=== PATIENT | female | born 1965 | race Caucasian/White ===

== ENCOUNTER → 2016-12-23 | Outpatient (CLI) | payer BC ==
--- NOTE | 2016-12-26 10:22 | Diagnostic Imaging Report ---
Bilateral screening mammogram The current study was also evaluated with a Computer Aided Detection (CAD) system. Indication: Screening. No current complaints stated on the questionnaire. COMPARISON: 07/30/14. FINDINGS: The breasts are composed of a heterogeneously dense parenchyma which may decrease mammographic sensitivity. There are asymmetries seen in the outer aspect of the left breast with round and oval shapes measuring 7 and 14 mm in size. The left breast demonstrate a biopsy clip in the central position superiorly with no adverse development. IMPRESSION: Focal compression views and ultrasound evaluation for a lateral left breast asymmetry is recommended. BI-RADS 0. ACR BI-RADS Category 0: Incomplete. (Needs additional imaging evaluation). Result letter will be mailed to the patient. Note: At least 10% of breast cancer is not imaged by mammography. Dictated by: Dictated on workstation # [id number]
== END ==
LOC: RAD 10:31
PROVIDERS: ATTEND Obstetrics & Gynecology
DX: Z12.31 Encounter for screening mammogram for malignant neoplasm of breast (principal)
CPT/HCPCS: 77067

== ENCOUNTER → 2017-01-06 | Outpatient (CLI) | payer BC ==
--- NOTE | 2017-01-06 19:43 | Diagnostic Imaging Report ---
EXAMINATION: Left breast ultrasound. INDICATION: Lobulated asymmetries in the left breast seen on mammography. FINDINGS: There are multiple cysts seen with simple appearance ranging from 11 o'clock to 2 o'clock radial zone positions. The largest is at 11 o'clock zone, 4 cm from the nipple, measuring 1.3 cm in size. The four quadrants and retroareolar region demonstrate otherwise no solid or suspicious mass. IMPRESSION: Multiple simple cysts in the upper left breast correlate with the asymmetries seen on mammography with no suspicious lesion. Annual screening mammogram recommended. ACR BI-RADS Category 2: Benign findings. Dictated by: Dictated on workstation # [id number]
--- NOTE | 2017-01-06 19:52 | Diagnostic Imaging Report ---
EXAMINATION: Left breast diagnostic mammogram. The current study was also evaluated with a Computer Aided Detection (CAD) system. INDICATION: Asymmetries along the left central and lateral aspect of the CC projection probably mostly in the upper breast. FINDINGS: There are multiple persistent lesions with well-defined margins suggested in the left breast which may relate to cysts. IMPRESSION: Persistent asymmetries appear to have lobulated circumscribed margins and favor to be cysts. Ultrasound evaluation is pending. ACR BI-RADS Category 0: Incomplete. (Needs additional imaging evaluation). Result letter will be mailed to the patient. Note: At least 10% of breast cancer is not imaged by mammography. Dictated by: Dictated on workstation # [id number]
== END ==
LOC: RAD 07:40
PROVIDERS: ATTEND Obstetrics & Gynecology
DX: N60.02 Solitary cyst of left breast (principal)
CPT/HCPCS: 76641

== ENCOUNTER → 2019-03-13 | Outpatient (CLI) | payer BC ==
--- NOTE | 2019-03-13 19:01 | Diagnostic Imaging Report ---
EXAMINATION: Digital mammogram bilateral screening. The current study was also evaluated with a Computer Aided Detection (CAD) system. 3-D tomosynthesis was also performed and reviewed. INDICATION: Screening. This study was compared to the prior exams of 12/23/2016 and 07/30/2014. At this time, there are no current complaints. FINDINGS: The fibroglandular tissue in both breasts is heterogeneously dense. This does limit the sensitivity of this exam. In the 2 o'clock position of the left breast roughly 6-7 cm deep to the nipple, there is now a 2 x 3 cm oval density. The tomographic images suggest that this is fairly well circumscribed and I suspect that this is a cyst. Even so, I would recommend that a true lateral view of the left breast and compression view of this area be obtained in the CC and ML projections for further study. Ultrasound should also be performed. The right breast is unchanged when compared to the prior exam. The stereotactic clip in the mid portion of the right breast seen previously is again evident and no different. IMPRESSION: Additional mammographic views and ultrasound of the left breast will be recommended for further evaluation. ACR BI-RADS Category 0: Incomplete. (Needs additional imaging evaluation). Result letter will be mailed to the patient. Note: At least 10% of breast cancer is not imaged by mammography. Dictated by: Dictated on workstation # [id number]
== END ==
LOC: RAD 14:40
PROVIDERS: ATTEND Nurse Practitioner
DX: Z12.31 Encounter for screening mammogram for malignant neoplasm of breast (principal)
CPT/HCPCS: 77067

== ENCOUNTER → 2020-12-09 | Outpatient (CLI) | payer BC ==
--- NOTE | 2020-12-09 09:09 | Diagnostic Imaging Report ---
INDICATION: Routine screening. COMPARISON: 03/13/2019 and 12/23/2016. TECHNIQUE: 2D and 3D bilateral screening mammography was performed with CAD. FINDINGS: Both breasts are heterogeneously dense, limiting the sensitivity of mammography. The cyst in the left breast previously noted has decreased in size. There is a biopsy clip in the upper right breast. There are benign calcifications bilaterally. No spiculated mass or malignant appearing microcalcifications are seen. The axillae are unremarkable. IMPRESSION: No mammographic features suspicious for malignancy are identified. ACR BI-RADS Category 2: Benign findings. Result letter will be mailed to the patient. Note: At least 10% of breast cancer is not imaged by mammography. Dictated by: Dictated on workstation # [id number]
== END ==
LOC: RAD 07:30
PROVIDERS: ATTEND Obstetrics & Gynecology
DX: Z12.31 Encounter for screening mammogram for malignant neoplasm of breast (principal)
CPT/HCPCS: 77063; 77067

== ENCOUNTER → 2021-11-19 | Outpatient (CLI) | payer BC ==
--- NOTE | 2021-11-19 14:13 | Diagnostic Imaging Report ---
INDICATION: Bilateral hand pain COMPARISON: None. FINDINGS: Multiple radiographic views of the bilateral hands were obtained and show no fractures, dislocations, or other acute bony abnormalities. Joint spaces are well maintained throughout. The soft tissues appear unremarkable. No radiopaque foreign bodies are identified. IMPRESSION: Unremarkable radiographic exam of the bilateral hands. Dictated by: Dictated on workstation # [id number]
== END ==
LOC: RAD 11:30
PROVIDERS: ATTEND Internal Medicine
DX: M79.642 Pain in left hand (principal); M79.641 Pain in right hand

== ENCOUNTER → 2022-06-09 | Outpatient (CLI) | payer BC ==
--- NOTE | 2022-06-09 11:26 | Diagnostic Imaging Report ---
Bilateral screening mammogram with CAD. CAD is utilized. The current study was also evaluated with a Computer Aided Detection (CAD) system. This study was compared to the prior exams of 12/23/2016, 03/13/2019 and 12/09/2020. At this time there are no current complaints. The current study was also evaluated with a Computer Aided Detection (CAD) system. FINDINGS: The fibroglandular tissue in both breasts is heterogeneously dense. This does limit the sensitivity of this exam. Overall, there does not appear to have been any significant change when compared to the prior study. No primary or secondary sign of malignancy is noted. The stereotactic clip in the right breast seen previously is again evident. IMPRESSION: There is no radiographic evidence for malignancy. ACR BI-RADS Category 1: Negative. Result letter will be mailed to the patient. Note: At least 10% of breast cancer is not imaged by mammography. Dictated by: Dictated on workstation # [id number]
== END ==
LOC: RAD 07:25
PROVIDERS: ATTEND Internal Medicine
DX: Z12.31 Encounter for screening mammogram for malignant neoplasm of breast (principal)
CPT/HCPCS: 77063; 77067

== ENCOUNTER 2022-08-10 05:36 | Outpatient (CLI) | payer BC ==
[~2022-08-10] VITALS: Ht 165.1 cm; Wt 68.0 kg
== END 2022-08-10 15:24 | disposition home or self-care (01) ==
LOC: PREOP 05:36
PROVIDERS: ATTEND Surgery
DX: Z01.818 Encounter for other preprocedural examination (principal)

== ENCOUNTER 2022-08-19 12:46 | Day surgery (SDC) | payer BC ==
[~2022-08-19] VITALS: Ht 165 cm; Wt 68.0 kg
[2022-08-19] MEDS ORDERED: LACTATED RINGERS 1,000 ML IV STA (12:48)
[2022-08-19] MEDS ORDERED: LACTATED RINGERS 1,000 ML IV ONE (12:58)
[2022-08-19 13:00] VITALS: BP 137/56
[2022-08-19] MEDS ORDERED: PROPOFOL INJECTION 50 ML IV ONE (13:40)
--- NOTE | 2022-08-19 14:13 | Discharge Inst-Simple/Standard ---
Discharge Inst-Standard Patient Instructions/Follow Up Plan of Care/Instructions/FU: F/u with Dr. Arauz in 2 weeks Activity as Tolerated: Yes Discharge Diet: No Restrictions, Other Diet (high fiber) JASSON ARAUZ DO Aug 19, 2022 14:13
[2022-08-19 14:15] VITALS: BP 101/59
[2022-08-19 14:20] VITALS: BP 97/56
[2022-08-19 14:25] VITALS: BP 93/53
[2022-08-19 14:51] VITALS: BP 111/56
[2022-08-19 14:55] VITALS: BP 111/56
--- NOTE | 2022-08-19 23:21 | OPERATIVE REPORT ---
DATE OF SERVICE: 08/19/2022 PREOPERATIVE DIAGNOSIS: Screening colonoscopy. POSTOPERATIVE DIAGNOSIS: Diverticulosis, colon polyps, internal hemorrhoids. SURGEON Jasson Arauz DO ANESTHESIA: Per FEATHER WASHER. PROCEDURE: Colonoscopy with hot biopsy polypectomy x2. INDICATIONS: The patient is a 57-year-old female, needing screening colonoscopy. She understands risks and benefits of the procedure, which the patient wishes to proceed. Consent was signed and in chart. DESCRIPTION OF PROCEDURE: The patient was taken to the endoscopy suite, placed in left lateral position. Timeout was performed. Digital rectal exam was performed. There were no palpable polyps, masses or ulcerations. Some slight internal hemorrhoidal disease. Scope was inserted in the rectum. I saw her cecum with minimal difficulty. Prep was adequate. Scope was slowly retracted back. No polyps, masses, ulcerations with cecum, ascending and transverse colon. In the descending colon, a small polyp was present, hot biopsy polypectomy was performed. Scope was then continued slowly retracted back and in the sigmoid colon where another polyp was present, which hot biopsy polypectomy was performed. Also, minimal to moderate amount of diverticulosis present. Once in the rectum, scope was retroflexed noting some internal hemorrhoids. Scope was returned to its normal position. It was slowly withdrawn until completely remove. The patient tolerated the procedure well without complications. She was taken to the recovery room in stable condition. RECOMMENDATIONS: The patient will need repeat colonoscopy in 5 years. The patient will follow up on pathology. Any issues before that will be seen at that time. Job ID: [id number] DocumentID: [id number] Dictated Date: 08/19/2022 14:16:19 Recruiter Specialist Date: 08/19/2022 23:19:00 Dictated By: JASSON ARAUZ DO
--- NOTE | 2022-08-20 09:44 | Anesthesia-General Post-Op ---
MAC Patient Condition Mental Status/LOC: Same as Preop Cardiovascular: Satisfactory Nausea/Vomiting: Absent Respiratory: Satisfactory Pain: Controlled Complications: Absent Post Op Complications Complications None Follow Up Care/Instructions Patient Instructions None needed. Anesthesiology Discharge Order Discharge Order Patient is doing well, no complaints, stable vital signs, no apparent adverse anesthesia problems. No complications reported per nursing. HOLA WADSWORTH CRNA Aug 20, 2022 09:44
== END 2022-08-19 14:55 | disposition home or self-care (01) ==
LOC: ENDO 12:46
PROVIDERS: ATTEND Surgery
DX: Z12.11 Encounter for screening for malignant neoplasm of colon (principal); D12.5 Benign neoplasm of sigmoid colon; K63.5 Polyp of colon; K57.30 Diverticulosis of large intestine without perforation or abscess without bleeding; K64.8 Other hemorrhoids